=== PATIENT | female | born 1955 | race Caucasian/White ===

== ENCOUNTER → 2016-10-27 | Outpatient (CLI) | payer BC ==
[2016-10-27 18:39] LABS: Basophils % (A) 1 %; CH 30.2; Eosinophils # (A) 0.1 k/uL (0-0.7); Eosinophils % (A) 2 %; HCT 43.9 % (34.0-46.0); HGB 14.4 gm/dL (11.4-16.0); Luc # (Auto) 0.08; Luc % (Auto) 2; Lymphocytes # (A) 1.6 k/uL (1.0-4.8); Lymphocytes % (A) 28 %; MCHC 32.7 g/dL (31.0-37.0); MCV 91.8 fL (80.0-100.0); Mean Platelet Volume 7.2; Monocytes # (A) 0.3 k/uL (0-1.0); Monocytes % (A) 6 %; Neutrophils # (A) 3.6 k/uL (1.3-7.7); Neutrophils % (A) 63 %; RBC 4.78 m/uL (3.80-5.40); RDW 12.6 % (11.5-15.5); WBC 5.8 k/uL (3.8-10.6); WBC (Perox) 5.68
[2016-10-27 18:49] LABS: ALT 40 U/L (9-52); AST 30 U/L (14-36); Alkaline Phosphatase 55 U/L (38-126); Anion Gap 11 mmol/L; Blood Urea Nitrogen 18 mg/dL (7-17); Carbon Dioxide 29 mmol/L (22-30); Chloride 102 mmol/L (98-107); Cholesterol 260 mg/dL (<200); Creatine Kinase 96 U/L (30-135); Glucose 87 mg/dL (74-99); HDL Cholesterol 56 mg/dL (40-60); Non-African American GFR(MDRD) >60 (>60 ml/min/1.73 sqM); Potassium 4.4 mmol/L (3.5-5.1); Sodium 142 mmol/L (137-145); Total Bilirubin 0.6 mg/dL (0.2-1.3); Total Protein 7.6 g/dL (6.3-8.2); Triglycerides 136 mg/dL (<150)
[2016-10-27 18:54] LABS: Rheumatoid Factor, Qnt 39 IU/mL (<12)
[2016-10-27 20:51] LABS: Erythrocyte Sedimentation Rate 11 mm/hr (0-20)
[2016-10-29 11:19] LABS: Anti-Endomysial IgA Antibody <1:10 Titer (<1:10)
[2016-10-29 13:35] LABS: Gliadin AB IgA, Deaminated 6 UNITS (<20); Gliadin AB IgG, Deaminated 3 UNITS (<20)
== END | disposition home or self-care (01) ==
LOC: MMGSC 16:25
PROVIDERS: ATTEND Family Medicine
DX: M79.1 Myalgia (principal); R10.84 Generalized abdominal pain; M25.50 Pain in unspecified joint
CPT/HCPCS: 36415; 80053; 80061; 82550; 83516; 84439; 84443; 85025; 85652; 86038; 86255; 86431

== ENCOUNTER → 2017-02-19 | Outpatient (CLI) | payer BC ==
[2017-02-19 20:22] LABS: Cholesterol 232 mg/dL (<200); HDL Cholesterol 52 mg/dL (40-60); Triglycerides 117 mg/dL (<150)
== END ==
LOC: MMGSC 10:13
PROVIDERS: ATTEND Family Medicine
DX: E78.00 Pure hypercholesterolemia, unspecified (principal); I10 Essential (primary) hypertension
CPT/HCPCS: 36415; 80061

== ENCOUNTER → 2017-08-20 | Outpatient (CLI) | payer BC ==
[2017-08-20 21:03] LABS: ALT 50 U/L (9-52); AST 33 U/L (14-36); Alkaline Phosphatase 58 U/L (38-126); Anion Gap 8 mmol/L; Blood Urea Nitrogen 15 mg/dL (7-17); Calcium 9.8 mg/dL (8.4-10.2); Carbon Dioxide 29 mmol/L (22-30); Chloride 103 mmol/L (98-107); Cholesterol 192 mg/dL (<200); Glucose 87 mg/dL (74-99); HDL Cholesterol 47 mg/dL (40-60); Non-African American GFR(MDRD) >60 (>60 ml/min/1.73 sqM); Potassium 4.6 mmol/L (3.5-5.1); Sodium 140 mmol/L (137-145); Total Bilirubin 0.7 mg/dL (0.2-1.3); Total Protein 7.5 g/dL (6.3-8.2)
== END | disposition home or self-care (01) ==
LOC: MMGSC 11:41
PROVIDERS: ATTEND Family Medicine
DX: E78.5 Hyperlipidemia, unspecified (principal); I10 Essential (primary) hypertension
CPT/HCPCS: 36415; 80053; 80061